=== PATIENT | male | born 1935 | race Caucasian/White ===

== ENCOUNTER 2018-03-06 08:50 | Emergency (ER) | payer MEDICARE, OTHER ==
[~2018-03-06] VITALS: Ht 180.3 cm; Wt 102.0 kg
[~2018-03-06 08:50] MED LIST: B-12500 MC1 OR; BABY ASPIRIN81 MG OR; CIPRO500 MG OR; COLPROBENEMID500 MG OR; DIABETA2.5 MG OR; LISINOP/HCTZ1 TA1 OR; METO50TA52 OR; NAPROSYN500 MG OR; ULTRAM50 M1 PO
[2018-03-06] MEDS ORDERED: LOSARTAN POT25 MG PO (09:06)
[2018-03-06] MEDS ORDERED: METFORMIN500 MG PO (09:07)
[2018-03-06] MEDS ORDERED: ALLOPURINOL300 MG PO (09:08)
[2018-03-06] MEDS ORDERED: PROBENECID500 MG PO (09:08)
[2018-03-06] MEDS ORDERED: PIOGLITAZONE HC30 MG PO (09:08)
[2018-03-06] MEDS ORDERED: FUROSEMIDE20 MG PO (09:09)
[2018-03-06 09:42] LABS: HEMATOCRIT 40.8 % (39.0-50.0); HEMOGLOBIN 13.1 g/dl (14.0-18.0); IMMATURE GRANULOCYTES 0.8 % (0.0-5.0); MEAN CELL VOLUME 98.8 fL CALC (80.0-100.0); MEAN CORPUSCULAR HGB 31.7 pG CALC (26.0-32.0); MEAN CORPUSCULAR HGB CONC 32.1 g/L CALC (32.0-36.0); NEUT# 3.67 thou/uL (1.82-7.42); RED BLOOD COUNT 4.13 mill/uL (4.70-6.10); RED CELL DISTRI WIDTH 14.9 % (11.5-15.5)
[2018-03-06 09:59] LABS: ALBUMIN 4.1 g/dL (3.2-5.0); ALKALINE PHOSPHATASE 70 u/l (38-126); ANION GAP 16 (6-22 (CALC)); BILIRUBIN, TOTAL 0.7 mg/dL (0.0-1.4); BUN 22 mg/dL (8-23); BUN/CREATININE RATIO 19 (12-20 (CALC)); CARBON DIOXIDE 26 mmol/l (22-30); CHLORIDE 105 mmol/l (95-108); CREATININE 1.2 mg/dL (0.7-1.3); GFR 58 ML/MIN (>=60 (CALC)); GFR FOR AFR.AMER. > 60 ML/MIN (>=60 (CALC)); POTASSIUM 4.4 mmol/l (3.5-5.1); SODIUM 143 mmol/l (137-146); TOTAL PROTEIN 6.5 g/dL (6.3-8.2)
[2018-03-06 10:00] LABS: SGOT/AST 20 u/l (19-48)
[2018-03-06 10:10] LABS: MYOGLOBIN 53 ng/mL (0 - 121)
[2018-03-06] MEDS ORDERED: MECLIZINE25 MG PO (11:06)
[2018-03-06] MEDS ORDERED: TORADOL PO (11:06)
[2018-03-06 11:07] VITALS: BP 130/79
== END 2018-03-06 11:15 | disposition home or self-care (01) ==
LOC: ED 08:50
PROVIDERS: Family Medicine
DX: H83.09 Labyrinthitis, unspecified ear (principal); M54.2 Cervicalgia; R42 Dizziness and giddiness; R11.2 Nausea with vomiting, unspecified; I10 Essential (primary) hypertension; Z86.011 Personal history of benign neoplasm of the brain

== ENCOUNTER → 2018-03-13 | Outpatient (REF) | payer MEDICARE, OTHER ==
[~2018-03-13] MED LIST changes: +ALLOPURINOL300 MG PO; +FUROSEMIDE20 MG PO; +LOSARTAN POT25 MG PO; +MECLIZINE25 MG PO; +METFORMIN500 MG PO; +PIOGLITAZONE HC30 MG PO; +PROBENECID500 MG PO; +TORADOL PO
[2018-03-13 08:14] LABS: HEMATOCRIT 41.9 % (39.0-50.0); HEMOGLOBIN 13.2 g/dl (14.0-18.0); IMMATURE GRANULOCYTES 4.2 % (0.0-5.0); MEAN CELL VOLUME 99.3 fL CALC (80.0-100.0); MEAN CORPUSCULAR HGB 31.3 pG CALC (26.0-32.0); MEAN CORPUSCULAR HGB CONC 31.5 g/L CALC (32.0-36.0); NEUT# 4.01 thou/uL (1.82-7.42); RED BLOOD COUNT 4.22 mill/uL (4.70-6.10)
[2018-03-13 08:34] LABS: BILIRUBIN, TOTAL 0.4 mg/dL (0.0-1.4); CREATININE 1.5 mg/dL (0.7-1.3); POTASSIUM 4.6 mmol/l (3.5-5.1); TOTAL PROTEIN 6.4 g/dL (6.3-8.2)
== END | disposition home or self-care (01) ==
LOC: LAB 07:28
PROVIDERS: ATTEND Specialist
DX: G62.89 Other specified polyneuropathies (principal); D32.0 Benign neoplasm of cerebral meninges; E11.42 Type 2 diabetes mellitus with diabetic polyneuropathy

== ENCOUNTER 2019-11-03 14:43 | Emergency (ER) | payer MEDICARE, OTHER ==
[2019-11-03 15:18] LABS: HEMATOCRIT 39.1 % (39.0-50.0); HEMOGLOBIN 12.5 g/dl (14.0-18.0); MEAN CELL VOLUME 93.1 fL CALC (80.0-100.0); MEAN CORPUSCULAR HGB 29.8 pG CALC (26.0-32.0); NEUT# 3.48 thou/uL (1.82-7.42); RED BLOOD COUNT 4.2 mill/uL (4.70-6.10); RED CELL DISTRI WIDTH 15.2 % (11.5-15.5)
[2019-11-03 15:30] LABS: ALBUMIN 4.2 g/dL (3.2-5.0); ALKALINE PHOSPHATASE 77 u/l (38-126); ANION GAP 14 (6-22 (CALC)); BILIRUBIN, TOTAL 0.6 mg/dL (0.0-1.4); BUN 22 mg/dL (8-23); BUN/CREATININE RATIO 16 (12-20 (CALC)); CARBON DIOXIDE 27 mmol/l (22-30); CHLORIDE 100 mmol/l (95-108); CREATININE 1.4 mg/dL (0.7-1.3); GFR 48 ML/MIN (>=60 (CALC)); GFR FOR AFR.AMER. 59 ML/MIN (>=60 (CALC)); POTASSIUM 3.8 mmol/l (3.5-5.1); SGOT/AST 18 u/l (19-48); SODIUM 137 mmol/l (137-146); TOTAL PROTEIN 7.2 g/dL (6.3-8.2)
[2019-11-03 15:44] LABS: PROTHROMBIN TIME 10.4 SECONDS (9.0-12.5)
[2019-11-03 18:32] VITALS: BP 111/79
== END 2019-11-03 18:32 ==
LOC: ED 14:43
PROVIDERS: Family Medicine
DX: S06.6X0A Traumatic subarachnoid hemorrhage without loss of consciousness, initial encounter (principal); I10 Essential (primary) hypertension; E11.9 Type 2 diabetes mellitus without complications; W18.39XA Other fall on same level, initial encounter; Z79.84 Long term (current) use of oral hypoglycemic drugs; Z79.01 Long term (current) use of anticoagulants; Z79.82 Long term (current) use of aspirin; R42 Dizziness and giddiness; W19.XXXA Unspecified fall, initial encounter
CPT/HCPCS: J1953; Q9967